=== PATIENT | female | born 1975 ===

== ENCOUNTER 2022-03-12 06:32 | Day surgery (SDC) | payer OTHER ==
[~2022-03-12] VITALS: Ht 162.6 cm; Wt 74.8 kg
[~2022-03-12 06:32] MED LIST: SYNTHROID100 MCG PO
== END 2022-03-12 18:40 | disposition home or self-care (01) ==
LOC: CIR.AMB 06:32
PROVIDERS: ATTEND Orthopaedic Surgery Hand Surgery
DX: M77.10 Lateral epicondylitis, unspecified elbow (principal); Z20.822 Contact with and (suspected) exposure to COVID-19; E03.9 Hypothyroidism, unspecified